=== PATIENT | male | born 1985 | race Caucasian/White ===

== ENCOUNTER 2017-02-12 13:34 | Emergency (ER) | payer OTHER ==
--- NOTE | 2017-02-12 14:32 | ED NECK/BACK PAIN COMPLAINT ---
See Addendum History of Present Illness General Chief Complaint: Animal/Insect Bite Stated Complaint: ANIMAL BITE TO R SIDE OF NECK Source: patient Exam Limitations: no limitations Vital Signs & Intake/Output Vital Signs & Intake/Output Vital Signs Date Time Temp Pulse Resp B/P B/P Pulse O2 O2 Flow FiO2 Mean Ox Delivery Rate 02/12 1449 70 14 130/70 97 Room Air 02/12 1343 99.0 84 20 130/74 98 Allergies Coded Allergies: No Known Allergies (02/12/17) Reconcile Medications Amoxicillin 875 MG TABLET 1 TAB PO BID cellulitis Sulfamethoxazole/Trimethoprim (Bactrim Ds Tablet) 800 MG-160 MG TABLET 1 TAB PO BID cellulitis Triage Note: PT PRESENTS TO ER WITH ? BUG BITE TO LEFT SIDE OF NECK. PT STATES HE HAS BEEN STAYING AT A [facility]OT[facility] AND HIS NECK WAS BIT BY SOMETHING. PT STATES TODAY HIS NECK HURTS AND IS MORE SWOLLEN AND RED Triage Nurses Notes Reviewed? yes Onset: Abrupt Duration: day(s):, constant, getting worse Timing: recent history Quality/Severity: moderate, severe Loss of Consciousness: no loss of consciousness HPI: 31-year-old male comes into emergency room for further evaluation of left-sided neck swelling and pain and redness. Patient reports that he must have been bitten by something. He reports swelling and sharp pain. Continuous. Denies any fever chills vomiting. Patient appears to have track zamudio all over his body but denies any type of IV drug use. Denies any injection of needles into this area. (BRUCE SWIFT) Past History Travel History Traveled to [place] past 21 day No Medical History Any Pertinent Medical History? see below for history Neurological: NONE EENT: NONE Surgical History Surgical History: non-contributory Psychosocial History What is your primary language Citizen Of [place] Tobacco Use: Current Daily Use Daily Tobacco Use Amount/Type: => 5 Cigarettes daily Family History Hx Contributory? No (BRUCE SWIFT) Review of Systems Review of Systems Constitutional: Reports: no symptoms. Eyes: Reports: no symptoms. Ears, Nose, Throat, Mouth: Reports: no symptoms. Respiratory: Reports: no symptoms. Cardiovascular: Reports: no symptoms. Gastrointestinal/Abdominal: Reports: no symptoms. Musculoskeletal: Reports: see HPI. Skin: Reports: see HPI. Neurological/Psychological: Reports: no symptoms. All Other Systems: Reviewed and Negative (BRUCE SWIFT) Physical Exam Physical Exam General Appearance: well developed/nourished, mild distress Head: atraumatic Eyes: Bilateral: normal appearance. Ears, Nose, Throat, Mouth: moist mucous membrane Neck: erythema to left-sided neck, swelling, skin indurated,, lymph streaking up and down the neck Respiratory: no respiratory distress Cardiovascular: regular rate/rhythm Back: normal inspection Extremities: normal range of motion Neurologic/Psych: awake, alert, oriented x 3, normal mood/affect Skin: intact, normal color, warm/dry (BRUCE SWIFT) Progress Differential Diagnosis: cauda equina syn, herniated disc, myofascial strain, pyelo/UTI, sciatica, thoracic outlet syn, T/L spine injury, ureterolithiasis, cellulitis/abscess Plan of Care: Orders Procedure Date/time Status BLOOD CULTURE 02/12 1413 Active C-REACTIVE PROTEIN 02/12 141 Complete COMPREHENSIVE METABOLIC PANEL 02/12 141 Complete CBC WITHOUT DIFFERENTIAL 02/12 1413 Complete Laboratory Tests 02/12/17 1435: Anion Gap 13, Estimated GFR > 60, BUN/Creatinine Ratio 13.3, Glucose 132 H, Calcium 9.6, Total Bilirubin 1.5 H, AST 29, ALT 38, Alkaline Phosphatase 91, C- Reactive Prot, Quant 4.8 H, Total Protein 8.0, Albumin 4.4, Globulin 3.6, Albumin/Globulin Ratio 1.2, CBC w Diff NO MAN DIFF REQ, RBC 4.57 L, MCV 87.6, MCH 29.7, RDW 14.1, MPV 7.6, Gran % 78.6 H, Lymphocytes % 13.5 L, Monocytes % 6.5, Eosinophils % 1.0, Basophils % 0.4, Absolute Granulocytes 11.9 H, Absolute Lymphocytes 2.1, Absolute Monocytes 1.0 H, Absolute Eosinophils 0.2, Absolute Basophils 0.1, PUBS MCHC 33.9 Microbiology 02/12 1445 BLOOD: Blood Culture - RECD 02/12 143 BLOOD: Blood Culture - RECD Comments: 02/12/2017 5:04:15 PM Patient finally admitted to IV drug use. He is clinically sober. He does not want to stay here in the hospital for IV antibiotics. He is mentally competent and able to make his own medical decisions. He has been explained the risks of leaving AGAINST MEDICAL ADVICE. I explained to the patient that these infections can be potentially life-threatening have the potential to cause . Patient was able to repeat everything back to me. He understands everything has been explained to him. He still wants to leave against medical advice despite all this information. He is going to return in 2-3 days for a wound check. (BRUCE SWIFT) Departure Departure Disposition: HOME OR SELF CARE Condition: Stable Clinical Impression Primary Impression: Cellulitis of neck Referrals: PATIENT HAS NO PRIMARY CARE DR (PCP/Family) Additional Instructions: You are leaving AGAINST MEDICAL ADVICE. Has been recommended that he be admitted to the hospital for IV antibiotics. If you have a severe infection on your neck that could potentially be life-threatening. He understand everything that has been explained to HIM. Despite all this he still wants to leave AGAINST MEDICAL ADVICE. Please return in 3 days for a wound check. Take Bactrim and amoxicillin as prescribed. Hot compresses to the neck. The Please go over all results of today's visit with your primary care doctor. Contact your primary care doctor to let them know you were here in the emergency room. There may be nonspecific findings which may not be related to your visit today here in the emergency room but may require further evaluation and chronic monitoring by your primary care doctor. If you had a laceration today the chance of foreign body always remains. You should follow-up with your primary care doctor for recheck in 3-5 days for a wound check. If you had an x-ray done there is a chance that a fracture could have been missed on initial read and you should follow-up with your primary care doctor for repeat x-rays if symptoms persist. If your blood pressure was elevated here in the emergency room please have rechecked by her primary care doctor within the next 48 hours by your primary care doctor. If you were prescribed a narcotic here in the emergency room or any type of controlled substances you're not allowed to drive while taking this medication or operate any type of heavy machinery. Narcotics can make you feel lightheaded dizziness nausea and can cause constipation. You may need to supervisor picking crew a stool softener. Thank you for choosing [facility] emergency room. Please return to the emergency room immediately if you have any other concerns worsening of symptoms. Departure Forms: Customer Survey General Discharge Information Prescriptions: Current Visit Scripts Sulfamethoxazole/Trimethoprim (Bactrim Ds Tablet) 1 TAB PO BID #20 TAB Amoxicillin 1 TAB PO BID #20 TAB (ANJELICA GOMEZ,BRUCE) Departure Comments 02/12/17 I've seen and personally examined the patient and I agree with the PAs evaluation. The patient has significant cellulitis to the left neck from intravenous drug use. Both myself and the PA spoke with the patient at length about staying in the hospital for intravenous antibiotics. The patient adamantly refused. He did consent to receive 1 dose of IV antibiotics in the emergency department and to follow-up in the Emergency Department closely for wound checks. He also consented to return if worse. He signed out AGAINST MEDICAL ADVICE (PARVEEN CRAIG DO)
[2017-02-12 14:49] VITALS: BP 130/70
[2017-02-12 14:49] LABS: ABSOLUTE BASOPHIL COUNT 0.1 /CUMM (0.0-0.2); ABSOLUTE EOSINOPHIL COUNT 0.2 /CUMM (0.0-0.7); ABSOLUTE GRANULOCYTE CT 11.9 /CUMM (1.4-6.5); ABSOLUTE LYMPH COUNT 2.1 /CUMM (1.2-3.4); BASOPHIL % 0.4 % (0.0-2.0); GRANULOCYTE % 78.6 % (42.2-75.2); HEMATOCRIT 40.1 % (42-52); MEAN CORPUSCULAR HGB 29.7 PG (27.0-31.0); MEAN CORPUSCULAR HGB CONC 33.9 G/DL (33.0-37.0); MEAN CORPUSCULAR VOLUME 87.6 FL (80.0-94.0); MEAN PLATELET VOLUME 7.6 FL (7.4-10.4); PLATELET COUNT 351 /CUMM (130-400); RBC DISTRIBUTION WIDTH 14.1 % (11.5-14.5); RED BLOOD CELL CT 4.57 /CUMM (4.70-6.10); WHITE BLOOD CELL COUNT 15.2 /CUMM (4.8-10.8)
--- NOTE | 2017-02-12 16:34 | CT SCAN REPORT ---
EXAMINATION: CT NECK WITH CONTRAST CLINICAL INFORMATION: Left-sided swelling and pain COMPARISON: None TECHNIQUE: Noncontrast images were acquired in the region of pain and palpable abnormality, followed by post contrast CT of the neck. Coronal and sagittal reformatted images were generated. Contrast: 95 mL Optiray 320. DLP: 644 mGy-cm FINDINGS: There is diffuse swelling and indistinctness of the left parotid gland with surrounding fairly exuberant fat stranding as well as skin thickening. Lobulated slightly hyperenhancing foci within the left parotid tail are most likely reflective of slightly enlarged intraparotid lymph nodes and appear to measure up to approximately 1.1 cm in long axis. There is no evidence of sialolith. In addition to fairly extensive left-sided subcutaneous fat stranding there is extensive fat stranding extending into the left submandibular space and submental spaces, as well as some fat stranding extending along the strap musculature on the left the level of the thoracic inlet. There are asymmetrically enlarged left level 1B lymph nodes measuring up to 1.5 cm in long axis, and asymmetric left level 2 lymph nodes measuring up to 1.7 cm. No discrete drainable fluid collections are visualized. There is mild prominence of the palatine tonsils, likely reactive. Otherwise the pharyngeal and laryngeal contours are unremarkable. No focal thyroid lesions. The submandibular glands are symmetric in size. There may be mild hyperattenuation within the left submandibular gland relative to the right. The right parotid gland appears unremarkable. No retropharyngeal effusion. The parapharyngeal fat is maintained. No upper mediastinal adenopathy. The lung apices appear clear. The visualized aortic arch appears fairly normal in caliber. The carotid sheath and vertebral vasculature opacify normally. The orbits are unremarkable. The imaged intracranial structures are unremarkable. The cerebellar tonsils appear normally positioned. No acute osseous abnormalities. There is mucosal thickening in the right anterior ethmoid air cells and left maxillary sinus the mastoid air cells and middle ear cavities are clear. The temporomandibular joints articulate normally. No significant degenerative change within the spine. There is mild reversal of the normal cervical lordosis. There has been recent extraction of the first and second left mandibular molars with the extraction pockets still visualized. On the right there are large dental caries involving the second maxillary molar as well as the first and third mandibular molars with periodontal and periapical lucencies. Dental caries are also visualized involving the second mandibular molar. Other smaller dental caries are scattered in the remaining teeth. IMPRESSION: 1. Diffuse, multi spatial inflammatory process within the left face and neck without drainable fluid collection. There appears to have been recent extraction of the first and second left mandibular molars, possibly the underlying etiology. There is a fairly pronounced presumed secondary left-sided parotitis and a mild left-sided submandibular sialadenitis without sialolith identified. There are reactive left-sided lymph nodes, which measure up to 1.7 cm in long axis at the level 2 lymph node station. Skin thickening is compatible with a concurrent cellulitis. 2. Multiple scattered dental caries in the remaining teeth, with the largest seen involving the right maxillary and mandibular molars where there is also periodontal and periapical lucency.
[2017-02-12] MEDS ORDERED: BACTRIM DS TAB1 EACH PO (16:53)
[2017-02-12] MEDS ORDERED: AMOXICILLIN875 M1 PO (16:53)
== END 2017-02-12 17:18 | disposition left against medical advice (07) ==
LOC: ERH 13:34
PROVIDERS: Physician Assistant Medical
DX: L03.221 Cellulitis of neck (principal); M54.2 Cervicalgia
CPT/HCPCS: 87184; 87040; 87147; 96374; J3370; J7040